=== PATIENT | male | born 1980 | race Caucasian/White ===

== ENCOUNTER 2017-05-09 16:51 | Emergency (ER) | payer OTHER ==
[~2017-05-09] VITALS: Ht 180.3 cm; Wt 86.4 kg
[~2017-05-09 16:51] MED LIST: AMOXICILLIN/CLA1 TA1 PO; CEPHALEXIN500 M1 PO; NO HOME MEDICATIONS; RT ALBUTER2.5 MG/0.5 IH; TENORMIN 5050 MG/TAB PO; ZESTORETIC 12.51 TA1 PO; ZITHROMAX TRI-500 MG PO
[2017-05-09 17:43] LABS: BASO # 0.1 (0.0-0.2); BASO % 0.5 % (0.0-2.0); EOS % 0.1 % (0-4.0); GRAN # 11.5 (1.4-6.5); GRAN % 87.9 % (42.2-75.2); HEMATOCRIT 40.4 % (42.0-52.0); HEMOGLOBIN 13.5 g/dl (13.5-18.0); LYMPH # 0.7 (1.2-3.4); LYMPH % 5.3 % (20.0-51.0); MEAN CELL VOLUME 90 fl (80.0-100.0); MEAN CORPUSCULAR HEMOGLOBIN 30 pg (27.0-31.0); MEAN CORPUSCULAR HGB CONC 33 g/dl (33.0-37.0); MEAN PLATELET VOLUME 10.4 fl (7.4-10.4); MONO # 0.8 (0.1-0.6); MONO % 5.7 % (1.7-9.3); PLATELET COUNT 157 K/mm3 (130-400); REDCELL DISTRIBUTION WIDTH-CV 14.2 % (11.5-14.5)
[2017-05-09 17:55] LABS: COLLECTION METHOD CLEAN CATCH
[2017-05-09 17:56] LABS: ALBUMIN 5.2 gm/dL (3.5-5.0); BILIRUBIN,TOTAL 1.1 mg/dL (0.0-1.0); C-REACTIVE PROTEIN 5.2 mg/dL (0.0-0.9); CALCIUM 10.8 mg/dL (8.4-10.2); CREATININE, serum 0.99 mg/dL (0.66-1.25); POTASSIUM 3.5 mmol/L (3.4-5.0); TOTAL PROTEIN 8.9 gm/dL (6.4-8.2)
[2017-05-09 18:06] LABS: HYALINE CAST >12 /lpf; MUCOUS Present /lpf; PH 5 (5-8); SQUAMOUS EPITHELIAL 0-2 /hpf; URINE APPEARANCE Hazy; URINE BACTERIA None Seen /hpf; URINE BILIRUBIN Positive (NEGATIVE); URINE BLOOD Negative (NEGATIVE); URINE COLOR Yellow; URINE GLUCOSE Negative (NEGATIVE); URINE KETONE 2+ (NEGATIVE); URINE LEUKOCYTE ESTERASE Negative (NEGATIVE); URINE NITRATE Negative (NEGATIVE); URINE PROTEIN(semi-quant) 2+ (NEGATIVE); URINE RBC 0-2 /hpf; URINE UROBILINOGEN Negative (NEGATIVE)
[2017-05-09 19:37] VITALS: TEMP 97.9
[2017-05-09] MEDS ORDERED: CIPRO 500MG TA500 MG PO (20:24)
[2017-05-09] MEDS ORDERED: NORCO 325 MG-51 TAB PO (20:24)
[2017-05-09] MEDS ORDERED: NORVASC 5MG5 MG/TAB PO (20:24)
[2017-05-09 21:30] VITALS: BP 152/117; PULSE 108
== END 2017-05-09 21:30 | disposition home or self-care (01) ==
LOC: COL.ER 16:51
PROVIDERS: Family Medicine
DX: M48.54XA Collapsed vertebra, not elsewhere classified, thoracic region, initial encounter for fracture (principal); I10 Essential (primary) hypertension; F17.220 Nicotine dependence, chewing tobacco, uncomplicated
CPT/HCPCS: J1170; J1885; J2060; J2405; J7030; Q9967

== ENCOUNTER 2017-07-04 04:54 | Inpatient (IN) | payer SELFPAY ==
[~2017-07-04] VITALS: Ht 180.3 cm; Wt 83.7 kg
[~2017-07-04 04:54] MED LIST changes: +CIPRO 500MG TA500 MG PO; +NORCO 325 MG-51 TAB PO; +NORVASC 5MG5 MG/TAB PO
[2017-07-04 05:31] LABS: BASO # 0.1 (0.0-0.2); BASO % 0.6 % (0.0-2.0); GRAN # 7.6 (1.4-6.5); GRAN % 76.3 % (42.2-75.2); LYMPH # 1.1 (1.2-3.4); LYMPH % 10.9 % (20.0-51.0); MEAN CELL VOLUME 87 fl (80.0-100.0); MEAN CORPUSCULAR HGB CONC 33 g/dl (33.0-37.0); MEAN PLATELET VOLUME 11.1 fl (7.4-10.4); MONO # 1.2 (0.1-0.6); MONO % 11.5 % (1.7-9.3); PLATELET COUNT 244 K/mm3 (130-400); RED BLOOD COUNT 3.61 M/mm3 (4.20-5.60)
[2017-07-04 05:42] LABS: ALANINE AMINOTRANSFERASE 108 U/L (21-72); ALBUMIN 4.3 gm/dL (3.5-5.0); ALKALINE PHOSPHATASE 83 U/L (50-136); ANION GAP 19 mmol/L (7-16); AST,SGOT 88 U/L (15-37); BLOOD UREA NITROGEN 35 mg/dL (9-20); CALCIUM 9.7 mg/dL (8.4-10.2); CARBON DIOXIDE 23 mmol/L (22-30); CHLORIDE 97 mmol/L (98-107); CREATININE, serum 0.94 mg/dL (0.66-1.25); GLUCOSE 180 mg/dL (74-106); LIPASE 33 U/L (23-300); POTASSIUM 3.6 mmol/L (3.4-5.0); SODIUM 139 mmol/L (137-145); TOTAL PROTEIN 8.4 gm/dL (6.4-8.2)
[2017-07-04 05:46] VITALS: BP 115/86; PULSE 132
[2017-07-04 05:50] LABS: ALCOHOL(ethanol),MEDICAL < 10 mg/dL
[2017-07-04 05:53] LABS: HEMATOCRIT 31.3 % (42.0-52.0); HEMOGLOBIN 10.4 g/dl (13.5-18.0); MEAN CORPUSCULAR HEMOGLOBIN 29 pg (27.0-31.0); TROPONIN-I < 0.012 ng/mL (0.000-0.034)
[2017-07-04 06:00] LABS: INR 1.2 (0.8-3.0); PROTHROMBIN TIME 13.8 SECONDS (9.7-12.8)
[2017-07-04 06:07] LABS: PARTIAL THROMBOPLASTIN TIME 24.3 SECONDS (26.0-37.0)
[2017-07-04 08:12] VITALS: BP 150/106; PULSE 116; TEMP 100.7
[2017-07-04] MEDS ORDERED: PRILOSEC 20MG20 MG PO (08:54)
== END 2017-07-04 10:10 | disposition left against medical advice (07) | DRG 378 ==
LOC: COL.ER 04:54 → ICU 06:59
PROVIDERS: Emergency Medicine
DX: K92.0 Hematemesis (principal); D62 Acute posthemorrhagic anemia; I10 Essential (primary) hypertension; F17.220 Nicotine dependence, chewing tobacco, uncomplicated; R73.9 Hyperglycemia, unspecified; R74.0 Nonspecific elevation of levels of transaminase and lactic acid dehydrogenase [LDH]; F10.11 Alcohol abuse, in remission; Y90.0 Blood alcohol level of less than 20 mg/100 ml
CPT/HCPCS: 99223-AI; C9113; J2405; J7030